=== PATIENT | female | born 1960 | race Caucasian/White ===

== ENCOUNTER → 2020-05-20 12:49 | Outpatient (CLI) | payer BC, SELFPAY ==
--- NOTE | ~2020-05-20 | MM_ITS ---
EXAMINATION: MM screening [facility] BI w [place] HISTORY: Screening mammogram TECHNIQUE: Craniocaudal and mediolateral oblique 3-D tomosynthesis images were obtained and synthetic 2-D images were generated. CAD analysis was submitted and interpreted. COMPARISON: 03/26/2019, 02/16/2018, 01/30/2017 BREAST PARENCHYMAL COMPOSITION: There are scattered areas of fibroglandular density. FINDINGS: Scattered benign-appearing calcifications are present. There is no evidence of suspicious m ass, calcification, or architectural distortion to suggest malignancy in either breast. There has bee n no suspicious interval change. IMPRESSION: 1. No mammographic evidence of malignancy. 2. Recommend routine screening mammography in one year. BI-RADS Category 2: Benign finding(s). Reviewed, dictated and finalized at location A.
== END ==
PROVIDERS: PCP Family Medicine Adolescent Medicine; Visit Provider Family Medicine Adolescent Medicine
DX: Z12.31 Encounter for screening mammogram for malignant neoplasm of breast (principal)
CPT/HCPCS: 77063; 77067

== ENCOUNTER → 2021-06-11 10:32 | Outpatient (CLI) | payer OTHER, SELFPAY ==
--- NOTE | ~2021-06-11 | MM_ITS ---
EXAMINATION: MM screening [facility] BI w [place] HISTORY: Screening mammogram TECHNIQUE: Craniocaudal and mediolateral oblique 3-D tomosynthesis images were obtained and synthetic 2-D images were generated. CAD analysis was submitted and interpreted. COMPARISON: 05/20/2020, 04/12/2019, 02/16/2018 bilateral digital screening mammogram examinations BREAST PARENCHYMAL COMPOSITION: There are scattered areas of fibroglandular density. FINDINGS: There is a biopsy marker in the lower outer right breast; history of prior benign right mila ast biopsy in 2017. There is no evidence of suspicious mass, calcification, or architectural distorti on to suggest malignancy in either breast. There has been no suspicious interval change. IMPRESSION: 1. No mammographic evidence of malignancy. 2. Recommend routine screening mammography in one year. Reviewed, dictated and finalized at location A.
== END ==
PROVIDERS: PCP Family Medicine Adolescent Medicine; Visit Provider Family Medicine Adolescent Medicine
DX: Z12.31 Encounter for screening mammogram for malignant neoplasm of breast (principal)
CPT/HCPCS: 77063; 77067

== ENCOUNTER 2021-12-13 07:51 | Outpatient (CLI) | payer OTHER, SELFPAY ==
--- NOTE | 2021-12-13 08:02 | ECG_ITS ---
Measurements Intervals [place] Rate: 104 P: 36 DC: 152 QRS: 10 QRSD: 110 T: 7 QT: 352 QTc: 465 Interpretive Statements SINUS TACHYCARDIA INCOMPLETE RIGHT BUNDLE BRANCH BLOCK [90+ ms QRS DURATION, TERMINAL R IN V1/V2, 40+ ms S IN I/aVL/V4/V5/V6] POSSIBLE INFERIOR MYOCARDIAL INFARCTION [35 ms Q WAVE IN II/aVF], PROBABLY OLD ABNORMAL ECG NO PREVIOUS ECG AVAILABLE FOR COMPARISON Electronically Signed On 12-13-2021 11:20:38 CDT by Leon Carrasquillo M.D.
[2021-12-13 08:45] LABS: Anion Gap 10 mmol/L (8-16); Blood Urea Nitrogen 17 mg/dL (7-17); Calcium 9.9 mg/dL (8.4-10.2); Carbon Dioxide 30 mmol/L (22-30); Chloride 101 mmol/L (98-107); Estimated Glomerular Filt Rate > 60; Glucose 123 mg/dL (65-110); Sodium 141 mmol/L (137-145)
== END 2021-12-13 07:52 | disposition home or self-care (01) ==
LOC: ANHSURGERY 07:55
PROVIDERS: Anesthesiology; PCP Family Medicine Adolescent Medicine; Visit Provider Orthopaedic Surgery
DX: Z01.818 Encounter for other preprocedural examination (principal); Z79.899 Other long term (current) drug therapy; I10 Essential (primary) hypertension; I45.10 Unspecified right bundle-branch block
CPT/HCPCS: 36415; 80048; 93005

== ENCOUNTER 2021-12-15 01:05 | Day surgery (SDC) | payer OTHER, SELFPAY ==
[2021-12-06 12:30] VITALS: BMI 37.8
--- NOTE | 2021-12-06 12:56 | PC.NURSE ---
Report to the Outpatient Waiting Room, entrance under the green pavilion located off [facility], at time 9:00 on date 12/15/21. OR Time: 11:00. - You and your visitor will be asked a series of questions to screen for COVID 19 for your protection. - A mask is required within the hospital. One visitor will be allowed to accompany the patient into the hospital. Patients visitor will be instructed to remain with patient at all times or leave the building. We will allow the visitor to come back to the postoperative area when patient is ready. Preoperative COVID Testing Requirements: No COVID Test needed if: (proof is required; if not received patient will have Rapid Test prior to entry) - Patient has received COVID Vaccine at least 14 days prior to procedure date or - Patient has positive COVID test result within last 90 days of surgery date. COVID Test needed if above criteria is not met Patients may have clear liquids (water, carbonated beverages, clear teas, apple juice) until 3 hours prior to surgery (8:00) with a maximum of 20 ounces. - No food from midnight until time of surgery Take the following medications with a SIP of water the morning of surgery: ALLOPURINOL, TRAMADOL (IF NEEDED) Medications to discontinue per physician: VITAMINS/SUPPLEMENTS Date to take last dose: 12/11/21 STOP INDOMETHACIN AND IBUPROFEN 7 DAYS PRIOR TO SURGERY PER DR. WOODRUFF Please no make-up, nail kyrgyz, hairspray, perfume, deodorant, or body powder the day of surgery. No jewelry (including any body piercings) or valuables the day of surgery, leave them at home. Please take a shower or bath the night before, or the morning of, surgery with an antibacterial soap. Wear comfortable, loose fitting clothing. - Jewelry must be removed prior to entering the operating room. Rings and piercings that are not removed may be cut off. - The hospital will not accept responsibility for valuables. - Please leave all valuables, including medications, at home the day of surgery. If you are going home after surgery, a licensed driver's license reviewing officer must drive you home. - NO public transportation without another adult. - We recommend that an adult stay with you for 24 hours following discharge. - We also recommend that you do not drive, make important decision, drink alcoholic beverages, or take any drugs that were not prescribed by your health care provider for at least 24 hours after your discharge time. Follow any additional instructions given to you from your surgeon. Telephone instructions given to EAN WATKINS and asked if any additional questions and then verbalized understanding. Patient advised to call surgeon office or pre surgery nurse liaison [phone] if any additional questions.
--- NOTE | 2021-12-14 08:05 | PM.IMHP ---
H&P: HPI History of Present Illness Date/Time: 12/14/21 08:05 Chief Complaint: right ankle pain and swelling Narrative: 61-year-old woman with right ankle pain and swelling. Advanced degenerative changes of the ankle and subtalar joint with avascular necrosis of the talus noted on radiographs. Has failed conservative treatment with bracing, medication, activity modification. Presents now for operative treatment. Review of Systems Constitutional: Constitutional: Denies fever(s) Eyes: Eyes: Denies blurry vision ENT: Reports Normal hearing present Cardiovascular: Cardiovascular: Denies chest pain and Denies dyspnea Respiratory: Respiratory: Denies dyspnea and Denies wheezing Gastrointestinal: Gastrointestinal: Denies abdominal pain Genitourinary: Genitourinary: Denies urinary urgency Musculoskeletal: Musculoskeletal: Reports as per HPI and Denies numbness Integumentary/Breasts: Skin/Breast: Denies changing lesions and Denies sores Neurologic: Reports Normal hearing present, Denies behavioral changes, Denies confusion, Denies numbness and Denies convulsions Psychiatric: Psychiatric: Denies behavioral changes, Denies confusion and Denies hallucinations Endocrine: Endocrine: Denies heat intolerance Hematologic/Lymphatic: Hematologic/Lymphatic: Denies easy bleeding Allergic/Immunologic: Allergic/Immunologic: Denies wheezing PMFSH Past Medical History Medical History Avascular necrosis of right talus Family History Family History Other Family history of arthritis Hypertension Social History Social History Smoking packs per day: 0.5 Smoking cigarettes per day: 10.0 Years smoked: 16 Smoking pack-years: 8.00 Smoking status: Former smoker Tobacco type: cigarettes Smoking end date: 09/24/99 Alcohol intake: current Drinks per week: 7 Substance use: never Substance use type: does not use Spiritual care concerns: No Meds Home Medications and Allergies Home Medications Medication Instructions Recorded Confirmed Type acetaminophen [Tylenol] 650 mg PO Q6H PRN 11/03/21 12/06/21 History aspirin 81 mg tablet,delayed 81 mg PO HS 11/03/21 12/06/21 History release cetirizine 10 mg tablet 10 mg PO DAILY 11/03/21 12/06/21 History furosemide 20 mg tablet 10 mg PO DAILY tablet 11/03/21 12/06/21 History glucosamine HCl 1,500 mg tablet 1,500 mg PO DAILY 11/03/21 12/06/21 History hydrochlorothiazide 25 mg tablet 25 mg PO DAILY 11/03/21 12/06/21 History ibuprofen 600 mg PO Q6H PRN 11/03/21 12/06/21 History indomethacin 50 mg capsule 100 mg PO DAILY cap 11/03/21 12/06/21 History losartan 100 mg tablet 100 mg PO DAILY 11/03/21 12/06/21 History multivitamin 1 tablet PO DAILY 11/03/21 12/06/21 History omeprazole 40 mg capsule,delayed 40 mg PO DAILY 11/03/21 12/06/21 History release tramadol 50 mg tablet 100 mg PO QID PRN #100 tablet 11/11/21 12/06/21 Rx allopurinol 300 mg PO DAILY 12/06/21 12/06/21 History Allergies Allergy/AdvReac Type Severity Reaction Status Date / Time No Known Allergies Allergy Unknown Verified 12/06/21 12:23 Exam Const: General: No confusion Orientation/consciousness: patient oriented x3 and No confusion HENMT: Head: normal to inspection, normocephalic and atraumatic Eyes: Conjunctivae: conjunctivae normal Sclera: sclerae normal Neck: Neck: supple and nontender Chest: Chest palpation & inspection: normal inspection of the chest Resp: Effort & Inspection: normal respiratory effort and no audible wheezes Cardio: Rate: regular rate Rhythm: regular rhythm : General: Yes deferred Skin: General skin exam: no rashes or lesions noted Neuro: General: patient oriented x3 and No confusion Extrem: General: capillary refill normal Right upper extremity: normal to inspection Left up
[2021-12-15] VITALS (12 sets, daily range): BP systolic 132–168; BP diastolic 68–86; PULSE 77–95; RESP 14–21; TEMP 36.2–37; O2SAT 95–100
--- NOTE | ~2021-12-15 | XR_ITS ---
EXAMINATION: XR surgery orthopedic DATE: 12/15/2021 14:32 INDICATION: Right ankle arthrodesis TECHNIQUE: 4 fluoroscopic images of the right ankle were obtained during procedure performed by Dr. Yany goldberg. Radiologist was not present for the imaging or procedure. The amount of fluoroscopy time used during this procedure was 0.4 minutes. COMPARISON: 11/02/2021 FINDINGS: Initial image demonstrates advanced arthritis at the tibiotalar joint with significant loss of bone s tock with fragmentation at both the talar dome and tibial plafond. There is a chronic nonunited fract ure of the medial malleolus. There is also a transverse fracture at the lateral malleolus which is ne w since the prior study. Subsequent images demonstrate resection of the distal fibula and talus and o steotomy at the distal tibia and along the dorsal aspect of the anterior calcaneus. Rounded corticate d bone graft, likely a femoral head allograft is situated in the the resected talus and is fixed with a lateral plate and screws which extends from the distal tibia across the bone allograft to the ante rior calcaneus. The alignment of the right ankle and hindfoot is been restored to near anatomic. IMPRESSION: 1. Internally fixed right ankle arthrodesis as detailed above. See procedure note for further detail. Reviewed, dictated and finalized at location A. IMPRESSION: 1. Internally fixed right ankle arthrodesis as detailed above. See procedure no te for further detail.
--- NOTE | 2021-12-15 06:51 | WPDHPUPDATE1 ---
History and Physical Update Update Date/Time: 12/15/21 06:51 History and Physical has been reviewed, including an updated exam of the patient. There are NO changes in the patient's condition. Risks, benefits, and alternatives have been discussed and questions answered. Patient agrees to proceed with procedure.
[2021-12-15] MEDS: LACTATED RINGERS 1,000 ML 30 ML IV CONT (09:55)
[2021-12-15] MEDS: ACETAMINOPHEN 500 MG TABLET 1000 MG PO (10:00)
[2021-12-15] MEDS: KETOROLAC 15 MG/ML VIAL (*BKC) IV PUSH (10:00)
--- NOTE | 2021-12-15 10:07 | P.PNAN_ITS ---
Anes - Initial Pre Proc Eval Procedure: Operation Date: 12/15/21 11:00 Proposed Procedures p Right Ankle Subtalar Arthrodesis - Ethan Riddle MD Date/Time: 12/15/21 10:07 Surgeon: Ethan Riddle MD Pre Op Diagnosis: rt ankle subtalar arthritis Patient Data Age: 61 Gender: F Height: 1.63 m Weight: 99.79 kg Allergies Allergy/AdvReac Type Severity Reaction Status Date / Time No Known Allergies Allergy Unknown Verified 12/06/21 12:23 Home Medications Medication Instructions Recorded Confirmed Type acetaminophen [Tylenol] 650 mg PO Q6H PRN 11/03/21 12/06/21 History aspirin 81 mg tablet,delayed 81 mg PO HS 11/03/21 12/06/21 History release cetirizine 10 mg tablet 10 mg PO DAILY 11/03/21 12/06/21 History furosemide 20 mg tablet 10 mg PO DAILY tablet 11/03/21 12/06/21 History glucosamine HCl 1,500 mg tablet 1,500 mg PO DAILY 11/03/21 12/06/21 History hydrochlorothiazide 25 mg tablet 25 mg PO DAILY 11/03/21 12/06/21 History ibuprofen 600 mg PO Q6H PRN 11/03/21 12/06/21 History indomethacin 50 mg capsule 100 mg PO DAILY cap 11/03/21 12/06/21 History losartan 100 mg tablet 100 mg PO DAILY 11/03/21 12/06/21 History multivitamin 1 tablet PO DAILY 11/03/21 12/06/21 History omeprazole 40 mg capsule,delayed 40 mg PO DAILY 11/03/21 12/06/21 History release tramadol 50 mg tablet 100 mg PO QID PRN #100 tablet 11/11/21 12/06/21 Rx allopurinol 300 mg PO DAILY 12/06/21 12/06/21 History Patient hx anesthesia problems: none Family hx anesthesia problems: none Results Review: All pre-operative results and documents have been reviewed as part of the pre-operative evaluation. [facility] Past Medical History Medical History Arthritis Avascular necrosis of right talus GERD (gastroesophageal reflux disease) Gout Hypertension Family History Family History Other Family history of arthritis Hypertension Social History Social History Smoking packs per day: 0.5 Smoking cigarettes per day: 10.0 Years smoked: 16 Smoking pack-years: 8.00 Smoking status: Former smoker Tobacco type: cigarettes Smoking end date: 09/24/99 Alcohol intake: current Drinks per week: 7 Substance use: never Substance use type: does not use Living arrangements: with family Spiritual care concerns: No Anes - Eval Final PreProcedure Day of Procedure 12/15/21 10:07 Patient weight: obese Heart: regular rate and rhythm Lungs: decreased breath sounds Airway: Mallampati scale class 1 Neurological: alert and oriented Last oral intake: >/= 8 hours ASA classification: III Emergent: no Anesthetic plan: proceed Anesthesia type and monitoring: general LMA and standard monitoring Results Review: All pre-operative results and documents have been reviewed as part of the pre-operative evaluation. Informed Consent: The patient's anesthetic plan and its attendant risks and benefits were discussed with the patient/family/POA. Questions were solicited and answers provided to the satisfaction of the patient/family/POA.
[2021-12-15] MEDS: SCOPOLAMINE 1.5 MG PATCH TRANSDERM (10:34)
[2021-12-15] MEDS: ceFAZolin 2 GM/D5W 50 ML 2 GM/50 ML BAG IVPB (11:30)
[2021-12-15] MEDS: TRANEXAMIC ACID 1,000 MG/10 ML AMPUL 1000 MG IV PUSH (12:32)
[2021-12-15] MEDS: fentaNYL CITRATE INJ (*CRX) 100 MCG/2 ML VIAL 25 MCG IV PUSH ×8 (15:20→15:55)
--- NOTE | 2021-12-15 15:20 | P.OP_ITS ---
Procedure Note - Detailed Date of Procedure 12/15/21 Pre-op Diagnosis rt ankle subtalar arthritis Post-op Diagnosis Same Procedure Performed Right ankle and subtalar joint arthrodesis Surgeon Ethan Riddle MD Numerical Control Drill Press Operator 1st graphic design assistant Anesthesia General Indications 61-year-old woman with avascular necrosis of the talus and complete destruction of the ankle joint. Deformity of the ankle in instability. Unable to bear weight. Presents for operative treatment Findings Avascular necrosis of the talar dome and body with 25% remaining, de vascularized. Complete destruction of the ankle joint with chronic medial malleolus fracture nonunion and new distal fibula lateral malleolus fracture. Description of Procedure Patient identified in the preoperative holding. Informed consent given. Operative extremity marked. Patient received intravenous antibiotics. Patient brought to the operating room where underwent general anesthetic by anesthesia team. Positioned supine on operating room table. Time-out performed confirming the patient, site of the surgery and the plan. Right lower extremity prepped draped usual sterile surgical fashion using a ChloraPrep skin solution. Foot ankle exsanguinated and the thigh tourniquet inflated to 250 mmHg. Direct lateral longitudinal incision made with a 15 blade knife over the distal fibula. Hemostasis controlled electrocautery. Fibula was exposed osteotomy performed above the ankle joint. Fibular brought out of the wound. This was cleared of soft tissue and ground up into bone graft using the bone mill. Ankle then inspected. There was noted to be almost complete loss of the talar body and destruction of the ankle mortise. Insight 2 fusion with of left the limb shortened with poor tendon function. Decision was then made to proceed with allograft replacement. The remaining talus was transected at the neck and brought out of the wound. This also was ground up for bone with the bone mill. Reaming was then performed of the ankle void using acetabular reamers. The femoral head allograft was measured at 49 mm in remain proceeded sequentially from a size 40 mm up to 50 mm. Impaction grafting was then performed with the fibular bone graft and the Reamer in reverse. Femoral head then positioned and aligned with both the tibia and the calcaneus. Position was provisionally pinned and checked with image intensification. Fixation achieved with a lateral tibia talus calcaneal plate from the Arthrex ankle set. Screws were 1st placed into the calcaneus and compression mode was used to compress the calcaneus to the allograft the allograft the tibia. Final fixation of the tibia was then performed. Image intensification comparing the overall alignment was ensured as well as position of the hardware. Thoroughly irrigated with solution remaining bone graft was packed anteriorly and posteriorly at the allograft site and the fascia was closed with 0 Vicryl interrupted suture. Tourniquet was released prior to fascial closure bleeding points were coagulated. Final closure achieved with 2-0 Vicryl and 3-0 Monocryl interrupted suture and velvet for the skin. Sterile dressing applied. A well-padded Beto Zuluaga dressing followed by fiberglass was placed. The patient was then woken from anesthesia, extubated and taken to the recovery room in stable condition. All sponge, needle, instrument counts were correct at the end of the case. Implants Arthrex TTC lateral plate and screws, femoral head Estimated Blood Loss -100.0 Tourniquet Time 135 Drains No Packing No Pathology None sent Complications None Condition Stable Disposition PACU
--- NOTE | 2021-12-15 16:12 | ADMGEN ---
This patient, Pricilla Dolan, was admitted to 2 Medical Room 258-. Patient/family oriented to hospital policies and general routines including ID bracelet, bed and alarms, visiting hours, pain management, procedures, bathroom and other care routines, personal items, smoking policy, room service/diet, and visiting hours. Information on how to activate the Rapid Response Team has been discussed. Patient/Family are encouraged to report perceived risks to care and to ask questions if they do not understand what they are told or what they should do.
[2021-12-15] MEDS: oxyCODONE HCL (*CRX) 5 MG TAB IR PO ×3 (16:20→23:42)
[2021-12-15] MEDS: DEXTROSE 5%/0.45% SOD CHL 1,000 ML 80 ML IV CONT (16:59)
[2021-12-15] MEDS: SENNA/DOCUSATE SODIUM TABLET 2 TAB PO (17:01)
[2021-12-15] MEDS: MORPHINE SULFATE (*CRX) 4 MG/ML INJ 3 MG IV PUSH (17:02)
[2021-12-15] MEDS: ASPIRIN 81 MG ENTERIC TABLET PO (19:37)
[2021-12-15] MEDS: diazePAM (*CRX) 5 MG TABLET PO (23:42)
[2021-12-16 01:43] VITALS: BP 132/66; PULSE 86; RESP 20; TEMP 36.8; O2SAT 100
[2021-12-16] MEDS: oxyCODONE HCL (*CRX) 5 MG TAB IR PO ×2 (04:08→09:56)
[2021-12-16 05:04] VITALS: BP 132/66; PULSE 86; RESP 20; TEMP 36.8; O2SAT 10
[2021-12-16] MEDS: allopurinoL 300 MG TABLET PO (09:05)
[2021-12-16] MEDS: LORATADINE 10 MG TABLET PO (09:05)
[2021-12-16] MEDS: MULTIVITAMINS THERAPEUTIC TAB (*BKC) 1 TABLET PO (09:05)
[2021-12-16] MEDS: hydroCHLOROthiazide 25 MG TABLET PO (09:05)
[2021-12-16] MEDS: LOSARTAN POTASSIUM 100 MG TABLET PO (09:05)
[2021-12-16] MEDS: SENNA/DOCUSATE SODIUM TABLET 2 TAB PO (09:06)
[2021-12-16] MEDS: FUROSEMIDE 10 MG TABLET PO (09:06)
[2021-12-16] MEDS: PANTOPRAZOLE 40 MG TABLET PO (09:06)
[2021-12-16] MEDS: polyethylene glycoL 3350 17 GM POWD.PACK PO (09:06)
[2021-12-16 09:23] VITALS: RESP 20; O2SAT 100
[2021-12-16 09:43] VITALS: BP 141/64; PULSE 91; RESP 20; TEMP 37.1; O2SAT 98
[2021-12-16] MEDS: diazePAM (*CRX) 5 MG TABLET PO (11:57)
[2021-12-16 14:00] VITALS: BP 138/69; PULSE 93; RESP 20; TEMP 36.8; O2SAT 97
--- NOTE | 2021-12-16 14:14 | PM.DS ---
DS: Admitting Diagnosis Discharge Date December 16, 2021 Admitting Diagnosis right ankle and subtalar arthritis, avascular necrosis talus DS: Discharge Diagnosis Discharge Diagnosis (1) Avascular necrosis of right talus: Code(s): M87.071 - Idiopathic aseptic necrosis of right ankle Status: Acute (2) Osteoarthritis of ankle: Qualifiers: Osteoarthritis type: other secondary Laterality: right Qualified Code(s): M19.271 - Secondary osteoarthritis, right ankle and foot Code(s): M19.079 - Primary osteoarthritis, unspecified ankle and foot Status: Acute DS: Summary Hospital Course Reason for hospitalization: Right ankle surgery Hospital Course: patient taken to the operating on December 15 underwent right ankle reconstruction. Admitted overnight for pain control and observation. Physical therapy on hospital day 1. Did well with therapy. Pain under control. Tolerating diet and voiding appropriately. Cleared for discharge home. Status at Discharge Functional status at discharge: uses cane/walker Overall status at discharge: patient is not back to baseline Time Spent with Patient Time attestation: patient taken to the operating on December 15 underwent right ankle reconstruction. Admitted overnight for pain control and observation. Physical therapy on hospital day 1. Did well with therapy. Pain under control. Tolerating diet and voiding appropriately. Cleared for discharge home. Specific discharge activities: no weight right leg, crutches for ambulation. Ice and elevate. Keep cast dry Exam Const: General: No confusion Orientation/consciousness: patient oriented x3 and No confusion HENMT: Head: normal to inspection, normocephalic and atraumatic Eyes: Conjunctivae: conjunctivae normal Sclera: sclerae normal Neck: Neck: supple and nontender Chest: Chest palpation & inspection: normal inspection of the chest Resp: Effort & Inspection: normal respiratory effort and no audible wheezes Cardio: Rate: regular rate Rhythm: regular rhythm : General: Yes deferred Skin: General skin exam: no rashes or lesions noted Neuro: General: patient oriented x3 and No confusion Extrem: General: capillary refill normal Right upper extremity: normal to inspection Left upper extremity: normal to inspection Right lower extremity: hip/thigh Details: no tenderness, knee Details: normal ROM; no tenderness and no swelling and ankle Details: other ( Cast in place. Toes with good capillary refill and good sensation. Able to move toes.) Left lower extremity: normal to inspection, hip/thigh Details: normal to inspection, knee Details: normal to inspection, ankle Details: normal to inspection and normal ROM ( Active flexion and extension intact); no tenderness and no swelling and foot Details: vascular exam Details: dorsalis pedis pulse present and normal capillary refill, tendon exam active flexion normal and active flexion abnormal and motor-sensory exam light-touch normal; no tenderness Psych: Affect: normal affect Discharge Plan Discharge Patient Disposition: Home, Self-Care Discharge Instructions: CRISTIANO WOODRUFF M.D. [facility] [address] [place] [address] [address] [place], [place] [id number] POST OPERATIVE DISCHARGE INSTRUCTIONS FOOT/ANKLE SURGERY Elevate the involved extremity on pillows. For the first 48 hours, make sure that the foot is above the level of your heart Carefully observe the exposed toes for evidence of swelling or discoloration. If the dressing is uncomfortable or tight, call the Dr?s office. Keep the dressing clean and dry. Remove dressing only as directed by doctor. Cast in place, keep clean and dry and leave in place until your follow up appointment. If the pain medication does not provide adequate relief, please call Dr?s office. Take other medication as prescribed. Please call Dr?s office to confirm follow-up appoint
== END 2021-12-16 16:20 | disposition home or self-care (01) ==
LOC: ANHSURGERY 15:27 → ANH2MED 16:32
PROVIDERS: PCP Family Medicine Adolescent Medicine; Visit Provider Orthopaedic Surgery
PROC: (CPT 28715; principal; 2021-12-15 11:00)
DX: M87.071 Idiopathic aseptic necrosis of right ankle (principal); M19.071 Primary osteoarthritis, right ankle and foot; I10 Essential (primary) hypertension; M10.9 Gout, unspecified; K21.9 Gastro-esophageal reflux disease without esophagitis; Z79.82 Long term (current) use of aspirin; Z87.891 Personal history of nicotine dependence; E66.9 Obesity, unspecified; Z68.38 Body mass index [BMI] 38.0-38.9, adult
CPT/HCPCS: 28725; 36415; 80048; 93005; 97161; 97165; A9270; C1713; C1769; J0690; J1100; J1885; J2250; J2270; J2405; J2704; J3010; J7120

== ENCOUNTER 2022-01-04 10:02 | Outpatient (CLI) | payer OTHER, SELFPAY ==
[2022-01-04 10:36] LABS: Hematocrit 37.9 % (37.0-47.0); Hemoglobin 12.7 g/dL (12.0-15.0); Mean Corpuscular HGB Conc 33.5 g/dl (32-36); Mean Corpuscular Hemoglobin 32.7 pg (26-34); Mean Corpuscular Volume 97.7 fl (80-100); Mean Platelet Volume 9.4 fl (7.4-10.4); Platelet Count Result 514 k/mm3 (150-375); Red Blood Count 3.88 M/mm3 (4.2-5.4); Red Cell Distribution Width 13.3 % (11.5-14.5)
[2022-01-04 10:52] LABS: Alanine Aminotransferase 16 U/L (4-35); Albumin Level 4.4 g/dL (3.5-5.1); Alkaline Phosphatase 100 U/L (38-126); Anion Gap 9 mmol/L (8-16); Aspartate Amino Transferase 30 U/L (14-36); Bilirubin,Total 0.7 mg/dL (0.2-1.3); Blood Urea Nitrogen 15 mg/dL (7-17); CRP 1.4 mg/dL (<1.0); Calcium 9.5 mg/dL (8.4-10.2); Carbon Dioxide 27 mmol/L (22-30); Chloride 101 mmol/L (98-107); Estimated Glomerular Filt Rate > 60; Glucose 127 mg/dL (65-110); Sodium 137 mmol/L (137-145)
[2022-01-04 10:58] LABS: Rheumatoid Factor < 8.6 IU/ML (<12)
[2022-01-04 11:26] LABS: Vitamin D 25 Hydroxy 45.2 ng/mL
[2022-01-04 11:37] LABS: Erythrocyte Sedimentation Rate 101 mm/hr (0-20)
[2022-01-09 06:56] LABS: Anti Cyclic Citrullinated Pept <16 Units (<20)
== END 2022-01-04 10:03 | disposition home or self-care (01) ==
LOC: ANHLAB 10:06
PROVIDERS: PCP Family Medicine Adolescent Medicine; Visit Provider Orthopaedic Surgery
DX: M06.9 Rheumatoid arthritis, unspecified (principal); E55.9 Vitamin D deficiency, unspecified
CPT/HCPCS: 36415; 80053; 82306; 85027; 85652; 86038; 86140; 86200; 86430

== ENCOUNTER 2022-03-22 08:50 | Outpatient (CLI) | payer OTHER, SELFPAY ==
--- NOTE | 2022-03-22 11:30 | NEURO_ITS ---
Impression: # Complains of lower extremity numbness and pain. History of gout and right ankle surgery. # No motor or sensory responses obtained though feet minimally jerked. # Needle/EMG exam abnormal distally. 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 Nerve Conduction Studies Anti Sensory Summary Table Stim Site NR Peak (ms) P-T Amp (?V) Site1 Site2 Delta-P (ms) Dist (cm) Michelet (m/s) Left Sup Fibular Anti Sensory (Ant Lat Mall) NO RESPONSE 14 cm NR 14 cm Ant Lat Mall 16.0 Right Sup Fibular Anti Sensory (Ant Lat Mall) NO RESPONSE 14 cm NR 14 cm Ant Lat Mall 16.0 Left Sural Anti Sensory (Lat Mall) NO RESPONSE Calf NR Calf Lat Mall 16.0 Right Sural Anti Sensory (Lat Mall) NO RESPONSE Calf NR Calf Lat Mall 16.0 Motor Summary Table Stim Site NR Onset (ms) O-P Amp (mV) Site1 Site2 Delta-0 (ms) Dist (cm) Michelet (m/s) Left Peroneal Motor (Vastus Med) NO RESPONSE Ankle NR Popit Ankle 0.0 Popit NR Right Peroneal Motor (Vastus Med) NO RESPONSE Ankle NR Popit Ankle 0.0 Popit NR Left Tibial Motor (Abd Sim Brev) NO RESPONSE Ankle NR Knee NR Right Tibial Motor (Abd Sim Brev) NO RESPONSE Ankle NR Knee NR F Wave Studies NR F-Lat (ms) L-R F-Lat (ms) Left Peroneal (Mrkrs) (EDB) NO RESPONSE NR Right Peroneal (Mrkrs) (EDB) NO RESPONSE NR Left Tibial (Mrkrs) (Abd Hallucis) NO RESPONSE NR Right Tibial (Mrkrs) (Abd Hallucis) NO RESPONSE NR EMG Side Muscle Nerve Root Ins Act Fibs Amp Dur Recrt Comment Right AntTibialis Dp Br Fibular L4-5 Nml Nml Decr >12ms Reduced Right Gastroc Tibial S1-2 Nml Nml Decr >12ms Reduced Right Fibularis Long Sup Br Fibular L5-S1 Nml Nml Decr >12ms Reduced Right Flex Dig Long Tibial L5-S2 Nml Nml Decr >12ms Reduced Right Ext Dig Brev Dp Br Fibular L5, S1 Nml Nml Decr >12ms Reduced Left AntTibialis Dp Br Fibular L4-5 Nml Nml Decr >12ms Reduced Left Gastroc Tibial S1-2 Nml Nml Decr >12ms Reduced Left Fibularis Long Sup Br Fibular L5-S1 Nml Nml Decr >12ms Reduced Left Flex Dig Long Tibial L5-S2 Nml Nml Decr >12ms Reduced Left Ext Dig Brev Dp Br Fibular L5, S1 Nml Nml Decr >12ms Reduced Right ExtHallLong Dp Br Fibular L5, S1 Nml Nml Decr >12ms Reduced Right Ext Dig Long Dp Br Fibular L5-S1 Nml Nml Decr >12ms Reduced Left ExtHallLong Dp Br Fibular L5, S1 Nml Nml Decr >12ms Reduced Left Ext Dig Long Dp Br Fibular L5-S1 Nml Nml Decr >12ms Reduced MTDD
== END 2022-03-22 08:51 | disposition home or self-care (01) ==
LOC: ANHNEURO 08:55
PROVIDERS: PCP Family Medicine Adolescent Medicine; Visit Provider Orthopaedic Surgery
DX: G57.53 Tarsal tunnel syndrome, bilateral lower limbs (principal)
CPT/HCPCS: 95886; 95910

== ENCOUNTER → 2022-09-16 08:21 | Outpatient (CLI) | payer OTHER, SELFPAY ==
--- NOTE | ~2022-09-16 | MM_ITS ---
EXAMINATION: MM screening rajni BI w [place] HISTORY: Screening mammogram TECHNIQUE: Craniocaudal and mediolateral oblique 3-D tomosynthesis images were obtained and synthetic 2-D images were generated. CAD analysis was submitted and interpreted. COMPARISON: 06/11/2021, 05/20/2020, 03/26/2019 bilateral screening mammogram examinations BREAST PARENCHYMAL COMPOSITION: There are scattered areas of fibroglandular density. FINDINGS: Biopsy marker on the right; history of prior benign right breast biopsy. Occasional benign microcalcifications. Benign posterior upper outer quadrant stable circumscribed int ramammary lymph node. There is no evidence of suspicious mass, calcification, or architectural distor tion to suggest malignancy in either breast. There has been no suspicious interval change. IMPRESSION: 1. No mammographic evidence of malignancy. 2. Recommend routine screening mammography in one year. BI-RADS Category 2: Benign finding(s). Reviewed, dictated and finalized at location A. APPLIANCE INSTALLER
== END ==
PROVIDERS: PCP Family Medicine Adolescent Medicine; Visit Provider Family Medicine Adolescent Medicine
DX: Z12.31 Encounter for screening mammogram for malignant neoplasm of breast (principal)
CPT/HCPCS: 77063; 77067

== ENCOUNTER 2023-04-23 09:20 | Outpatient (CLI) | payer OTHER, SELFPAY ==
--- NOTE | 2023-04-23 09:29 | ECG_ITS ---
Measurements Intervals Clarence Rate: 77 P: 30 DE: 148 QRS: 19 QRSD: 95 T: 18 QT: 388 QTc: 440 Interpretive Statements SINUS RHYTHM INCOMPLETE RIGHT BUNDLE BRANCH BLOCK LOW QRS VOLTAGE IN PRECORDIAL LEADS BASELINE ARTIFACT- I, II, III, AVR, AVL, AVF, V3, V6 BORDERLINE ECG COMPARED TO ECG 12/13/2021 08:11:24 SINUS RHYTHM NOW PRESENT Electronically Signed On 04-23-2023 9:55:48 CDT by Tyrell Eldridge D.O.
[2023-04-23 10:33] LABS: Anion Gap 6 mmol/L (8-16); Blood Urea Nitrogen 16 mg/dL (7-17); Calcium 9.7 mg/dL (8.4-10.2); Carbon Dioxide 29 mmol/L (22-30); Chloride 97 mmol/L (98-107); Estimated Glomerular Filt Rate > 60; Glucose 121 mg/dL (65-110); Potassium 3.4 mmol/L (3.4-5.0); Sodium 132 mmol/L (137-145)
== END 2023-04-23 09:21 | disposition home or self-care (01) ==
LOC: ANHSURGERY 09:26
PROVIDERS: Anesthesiology; PCP Family Medicine Adolescent Medicine; Visit Provider Orthopaedic Surgery
DX: I10 Essential (primary) hypertension (principal); Z79.899 Other long term (current) drug therapy; Z01.818 Encounter for other preprocedural examination; I45.10 Unspecified right bundle-branch block
CPT/HCPCS: 36415; 80048; 93005

== ENCOUNTER 2023-04-26 02:28 | Day surgery (SDC) | payer OTHER, SELFPAY ==
[2023-04-19 10:01] VITALS: BMI 35.3
--- NOTE | 2023-04-19 10:07 | PC.NURSE ---
Report to the Outpatient Waiting Room, entrance under the green pavilion located off [facility], at time 6:00 on date 04/26/23. Planned Procedure Time: 7:30. Time changes happen often and if your time is changed the preop area will call you the afternoon before. - You and your visitor will be asked to self-screen and do not enter if you have any COVID symptoms. - A mask is optional within the hospital at this time. Patients may have clear liquids (water, carbonated beverages, clear teas, apple juice) until 3 hours prior to surgery (4:30) with a maximum of 20 ounces. - No food from midnight until time of surgery Take the following medications with a SIP of water the morning of surgery: TYLENOL OR TRAMADOL IF NEEDED DO NOT STOP ANY OF YOUR OTHER PRESCRIPTION MEDICATIONS PRIOR TO SURGERY ?EXCEPT THE FOLLOWING Medications to discontinue per physician: IBUPROFEN Date to take last dose: 04/19/23 LAST DOSE OF VITAMINS/SUPPLEMENTS: 04/22/23 Please no make-up, nail estonian, hairspray, perfume, deodorant, or body powder the day of surgery. No jewelry (including any body piercings) or valuables the day of surgery, leave them at home. Please take a shower or bath the night before, or the morning of, surgery with an antibacterial soap. Wear comfortable, loose fitting clothing. - Jewelry must be removed prior to entering the operating room. Rings and piercings that are not removed may be cut off. - The hospital will not accept responsibility for valuables. - Please leave all valuables, including medications, at home the day of surgery. If you are going home after surgery, a licensed recycler forklift driver truck driver must drive you home. - NO public transportation without another adult if you receive anesthesia. - We recommend that an adult stay with you for 24 hours following discharge. - We also recommend that you do not drive, make important decision, drink alcoholic beverages, or take any drugs that were not prescribed by your health care provider for at least 24 hours after your discharge time. Follow any additional instructions given to you from your surgeon. If you or anyone in your household have experienced Covid symptoms in the past week, please notify your surgeon or the nurse liaison at the phone number below for possible testing. Telephone instructions given to PT - EAN WATKINS and asked if any additional questions and then verbalized understanding. Patient advised to call surgeon office or pre surgery nurse liaison [phone] if any additional questions.
--- NOTE | 2023-04-25 14:09 | WPDANESEPPF ---
Anes - Initial Pre Proc Eval Procedure: Operation Date: 04/26/23 07:30 Proposed Procedures p Right Ankle Arthrodesis, - Ethan Riddle MD s Possible Iliac Crest Bone Graft, Removal of Hardware - Ethan Riddle MD Date/Time: 04/25/23 14:09 Surgeon: Ethan Riddle MD Pre Op Diagnosis: right ankle nonunion, hardware failure Patient Data Age: 62 Gender: F Height: 1.64 m Weight: 94.8 kg Allergies Allergy/AdvReac Type Severity Reaction Status Date / Time No Known Allergies Allergy Unknown Verified 04/26/23 06:50 Home Medications Medication Instructions Recorded Confirmed Type acetaminophen [Tylenol] 650 mg PO Q6H PRN Pain 11/03/21 04/19/23 History aspirin 81 mg tablet,delayed 81 mg PO HS 11/03/21 04/19/23 History release cetirizine 10 mg tablet 10 mg PO DAILY 11/03/21 04/19/23 History glucosamine HCl 1,500 mg tablet 1,500 mg PO DAILY 11/03/21 04/19/23 History ibuprofen 600 mg PO Q6H PRN Pain 11/03/21 04/19/23 History multivitamin 1 tablet PO DAILY 11/03/21 04/19/23 History tramadol 50 mg tablet 100 mg PO QID PRN pain #100 tabs 11/11/21 04/19/23 Rx allopurinol 300 mg tablet 300 mg PO DAILY #90 tabs 05/24/22 04/19/23 Rx furosemide 20 mg tablet 20 mg PO DAILY #90 tabs 05/24/22 04/19/23 Rx hydrochlorothiazide 25 mg tablet 25 mg PO DAILY #90 tabs 05/24/22 04/19/23 Rx losartan 100 mg tablet 100 mg PO DAILY #90 tabs 05/24/22 04/19/23 Rx omeprazole 40 mg capsule,delayed 40 mg PO DAILY #90 caps 05/24/22 04/19/23 Rx release Patient hx anesthesia problems: none Family hx anesthesia problems: none Results Review: All pre-operative results and documents have been reviewed as part of the pre-operative evaluation. [facility] Past Medical History Medical History (Updated 04/18/23 @ 11:58 by Ethan Riddle MD) Arthritis Avascular necrosis of right talus Encounter for postoperative care Failed hardware GERD (gastroesophageal reflux disease) Gout Hypertension Nonunion of arthrodesis Surgical History Surgical History Hx of breast biopsy Benign Family History Family History Father Colon polyp Hypertension AAA (abdominal aortic aneurysm) Sibling Colon polyp Grandparent Breast cancer Diabetes mellitus Malignant neoplasm of prostate Other Family history of arthritis Social History Social History Smoking packs per day: 0.5 Smoking cigarettes per day: 10.0 Years smoked: 20 Smoking pack-years: 10.00 Smoking status: Former smoker Tobacco type: cigarettes Second hand tobacco smoke exposure: No Smoking end date: 09/24/99 Alcohol intake: current Drinks per week: 14 Alcohol use details: BEER Substance use: never Substance use type: does not use Living arrangements: with family Occupation/Education: occupation Gender identity (if verbalized by the patient): Female Spiritual care concerns: No Agree to blood products: Yes Anes - Eval Final PreProcedure Day of Procedure 04/25/23 14:09 Patient weight: obese Heart: regular rate and rhythm Lungs: clear to auscultation Airway: Mallampati scale class II Neurological: alert and oriented Last oral intake: >/= 8 hours ASA classification: III Emergent: no Anesthetic plan: proceed Anesthesia type and monitoring: general LMA and standard monitoring Results Review: All pre-operative results and documents have been reviewed as part of the pre-operative evaluation. Informed Consent: The patient's anesthetic plan and its attendant risks and benefits were discussed with the patient/family/POA. Questions were solicited and answers provided to the satisfaction of the patient/family/POA.
[2023-04-26] VITALS (9 sets, daily range): BP systolic 108–151; BP diastolic 64–83; PULSE 63–76; RESP 14–20; TEMP 36.9–37.3; O2SAT 95–100
--- NOTE | ~2023-04-26 | XR_ITS ---
EXAMINATION: XR surgery orthopedic DATE: 04/26/2023 09:39 INDICATION: Right ankle arthrodesis instrumentation removal and replacement TECHNIQUE: 3 fluoroscopic images of the right ankle were obtained during procedure performed by Dr. Yany goldberg. Radiologist was not present for the imaging or procedure. The amount of fluoroscopy time used during this procedure was 0.2 minutes. COMPARISON: 12/15/2021 and 04/18/2023 FINDINGS: Interval removal of the previously fractured lateral plate and screw fixation spanning the attempted ankle and subtalar arthrodesis. The medial angulation and overriding occurring at the proximal margin of the attempted arthrodesis on the instrumentation failure has been reduced to closely approximate the alignment following the initial surgery. A new lateral plate and screw fixations been placed yaa g the lateral side of the distal tibia, spanning the previous placed femoral head bone graft and into the anterior process of the talus. There is residual pes planus. Interval remodeling of the still sm oothly corticated distal osteotomy margin of the fibula. Expected small amount of soft tissue gas at the operative bed. IMPRESSION: 1. Segmentation removal, reduction and placement of a new lateral plate and screw fixation for revisi on of a previously failed right ankle and subtalar arthrodesis. See procedure note for further detail . Reviewed, dictated and finalized at location A. IMPRESSION: 1. Segmentation removal, reduction and placement of a new lateral plate and scr ew fixation for revision of a previously failed right ankle and subtalar arthro desis. See procedure note for further detail.
[2023-04-26] MEDS: LACTATED RINGERS 1,000 ML 30 ML IV CONT ×2 (06:45→09:52)
[2023-04-26] MEDS: ACETAMINOPHEN 500 MG TABLET 1000 MG PO (06:45)
[2023-04-26] MEDS: KETOROLAC 15 MG/ML VIAL (*BKC) IV PUSH (06:45)
--- NOTE | 2023-04-26 07:12 | WPDHPUPDATE1 ---
History and Physical Update Update Date/Time: 04/26/23 07:12 History and Physical has been reviewed, including an updated exam of the patient. There are NO changes in the patient's condition. Risks, benefits, and alternatives have been discussed and questions answered. Patient agrees to proceed with procedure.
[2023-04-26] MEDS: ceFAZolin 2 GM/D5W 50 ML 2 GM/50 ML BAG IVPB (07:33)
[2023-04-26] MEDS: BUPivacaine HCL 0.5% 10 ML AMP 30 ML INFILTRATE (08:21)
--- NOTE | 2023-04-26 09:07 | SUR.OPER ---
moderate wbc's and no organisms found on gram stain per lab. dr. carbone informed.
--- NOTE | 2023-04-26 10:08 | W.PM.PROC2 ---
Procedure Note - Detailed Date of Procedure 04/26/23 Pre-op Diagnosis right ankle nonunion, hardware failure Post-op Diagnosis Same Procedure Performed Rt ankle arthrodesis, deep hardware removal Surgeon Ethan Riddle MD Rater Associate 1st construction assistant Anesthesia General Indications 62yo woman with right ankle arthrodesis nonunion and failed hardware. Presents for revision and removal of hardware. Findings Ankle arthrodesis nonunion, subtalar fusion well healed Description of Procedure Patient identified in the preoperative holding. Informed consent given. Operative extremity marked. Patient received intravenous antibiotics. Patient brought to the operating room where underwent general anesthetic by anesthesia team. Positioned supine on operating room table. Time-out performed confirming the patient, site of the surgery and the plan. Right leg prepped and draped usual sterile surgical fashion using ChloraPrep skin solution. Foot and ankle exsanguinated and thigh tourniquet inflated to 250 mmHg. previous lateral incision utilized with a 15 blade knife. Hemostasis controlled electrocautery. Fascia incised line skin incision. We dressed the broken hardware 1st. The anterolateral leg musculature was elevated off the tibia Jing out exposure of the plate and screws. Screws were removed the plate was removed. There is metal Trout noted at the fracture site. This was debrided with a rongeur. Curette used for the screw holes. Thorough irrigation done. There was also fluid present at the hardware failure site. This was cultured and sent as a specimen. Evaluating the previous surgical site the femoral head allograft was inspected. There was noted to be good healing the subtalar joint but nonunion at the ankle arthrodesis site. Arthrodesis site was cleared with a rongeur and osteotomes. 0.062 in K-wire was used to make multiple bone. Bleeding bone was ensured. Arthrex bone graft was not apparent on back table and packed into the arthrodesis site. Local bone bone chips were also harvested and placed into arthrodesis a [facility] fusion plate. Image intensification confirmed reduction and placement wound was thoroughly irrigated with solution. Fascia was closed with 0 Vicryl interrupted suture. Subcutaneous tissue repaired with 2-0 Vicryl interrupted suture and skin repaired with 3-0 Monocryl subcuticular stitch and velvet. Sterile dressing applied. The patient was then woken from anesthesia, extubated and taken to the recovery room in stable condition. All sponge, needle, instrument counts were correct at the end of the case. Implants Arthrex ankle fusion plate and screws Estimated Blood Loss -10.0 Tourniquet Time 110 Drains No Packing No Pathology None sent Complications None Condition Stable Disposition PACU [facility] Billing Surgery - Charge Forward: Surgery Billing ([id number], [id number])
[2023-04-26] MEDS: fentaNYL CITRATE INJ (*CRX) 100 MCG/2 ML VIAL 25 MCG IV PUSH ×4 (10:12→10:36)
[2023-04-26] MEDS: ONDANSETRON INJ 4 MG/2 ML VIAL IV PUSH (10:57)
[2023-04-26] MEDS: oxyCODONE HCL (*CRX) 5 MG TAB IR PO (13:20)
== END 2023-04-26 13:10 | disposition home or self-care (01) ==
PROVIDERS: PCP Family Medicine Adolescent Medicine; Visit Provider Orthopaedic Surgery
PROC: (CPT 27870; principal; 2023-04-26 07:30)
DX: M96.0 Pseudarthrosis after fusion or arthrodesis (principal); G61.9 Inflammatory polyneuropathy, unspecified; G62.9 Polyneuropathy, unspecified; K21.9 Gastro-esophageal reflux disease without esophagitis; I10 Essential (primary) hypertension; Z87.891 Personal history of nicotine dependence; Z79.82 Long term (current) use of aspirin; Z79.891 Long term (current) use of opiate analgesic
CPT/HCPCS: 27870; 36415; 80048; 87070; 87075; 87205; 93005; 99199; A9270; J0690; J1885; J2250; J2405; J3010; J7120

== ENCOUNTER 2023-11-17 08:43 | Outpatient (CLI) | payer OTHER, SELFPAY ==
--- NOTE | ~2023-11-17 | MM_ITS ---
EXAMINATION: MM screening rajni BI w [place] HISTORY: Screening mammogram TECHNIQUE: Craniocaudal and mediolateral oblique 3-D tomosynthesis images were obtained and synthetic 2-D images were generated. CAD analysis was submitted and interpreted. COMPARISON: 09/16/2022, 06/11/2021, 05/20/2020 BREAST PARENCHYMAL COMPOSITION:Not Dense. The breasts are almost entirely fatty FINDINGS: No suspicious mass, calcification, or architectural distortion are identified in either mila ast to suggest malignancy. There has been no suspicious interval change. IMPRESSION: No mammographic evidence of malignancy. Recommend routine screening mammography in one year. BI-RADS Category 1: Negative Reviewed, dictated and finalized at location . 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
== END 2023-11-17 08:44 ==
PROVIDERS: PCP Family Medicine Adolescent Medicine; Visit Provider Family Medicine Adolescent Medicine
DX: Z12.31 Encounter for screening mammogram for malignant neoplasm of breast (principal)
CPT/HCPCS: 77063; 77067